=== PATIENT | male | born 1995 | race African-American/Black ===

== ENCOUNTER 2018-03-11 18:47 | Emergency (ER) | payer OTHER ==
[~2018-03-11] VITALS: Ht 175.3 cm; Wt 72.6 kg
[2018-03-11 19:19] VITALS: BP 124/64
== END 2018-03-11 21:16 | disposition home or self-care (01) ==
LOC: ER 18:47
DX: S06.0X9A Concussion with loss of consciousness of unspecified duration, initial encounter (principal); W19.XXXA Unspecified fall, initial encounter; Y93.89 Activity, other specified; Y92.89 Other specified places as the place of occurrence of the external cause; Y99.8 Other external cause status
CPT/HCPCS: 70450